=== PATIENT | female | born 1975 | race Caucasian/White ===

== ENCOUNTER → 2019-07-08 | Outpatient (CLI) | payer BC ==
--- NOTE | 2019-07-08 09:22 | US ---
EXAMINATION TYPE: US transvaginal DATE OF EXAM: 07/08/2019 COMPARISON: NONE CLINICAL HISTORY: 43-year-old female N92.0 Menorrhagia. Heavy periods. TECHNIQUE: Transvaginal (TV FINDINGS: EXAM MEASUREMENTS: Uterus: 8.1 x 3.8 x 4.2 cm Endometrial Stripe: .8 cm 1. Uterus: Anteverted wnl. Small cervical nabothian cysts. 2. Endometrium: wnl 3. Right Ovary: Obscured by overlying bowel gas 4. Left Ovary: Obscured by overlying bowel gas 5. Bilateral Adnexa: wnl 6. Posterior cul-de-sac: wnl IMPRESSION: Endometrial stripe measuring 8 mm. Small cervical nabothian cysts. Neither ovary could be visualized. No pelvic free fluid.
== END | disposition home or self-care (01) ==
LOC: RADUSWWP 08:43
PROVIDERS: ATTEND Family Medicine
DX: N88.8 Other specified noninflammatory disorders of cervix uteri (principal)
CPT/HCPCS: 76830

== ENCOUNTER 2021-04-18 12:59 | Emergency (ER) | payer BC ==
[2021-04-18 13:14] VITALS: RESP 18
[2021-04-18] MEDS ORDERED: SODIUM CHLORIDE 0.9% 1,000 ML IV STA (14:22)
[2021-04-18] MEDS ORDERED: PANTOPRAZOLE 40 MG/10 ML VIAL IVP STA (14:22)
--- NOTE | 2021-04-18 14:28 | ED ---
General Adult HPI - General Chief complaint: GI Bleed Stated complaint: rectal bleeding Time Seen by Provider: 04/18/21 14:15 Source: patient, RN notes reviewed, old records reviewed Mode of arrival: ambulatory Limitations: no limitations - History of Present Illness Initial comments: 45-year-old female presents to the emergency room ambulatory with complaints of rectal bleeding more than 10 times since Sunday. Patient states that she's had some abdominal pain and cramping and then bright red stools. She also felt dizzy and feverish. She started taking Ozempic for weight loss ,Sunday of last week was her first injection. She called her primary care doctor who suggested she come to the emergency room. She has had nausea, no vomiting. -: days(s) (2) Location: abdomen Severity scale (1-10): 0 Consistency: now resolved Associated Symptoms: fever/chills, nausea/vomiting, other (rectal bleeding) - Related Data Home Medications Medication Instructions Recorded Confirmed Ondansetron Odt [Zofran Odt] 4 mg PO Q8H PRN 04/18/21 04/18/21 Semaglutide [Ozempic] 0.25 mg SQ TU 04/18/21 04/18/21 Venlafaxine HCl [Effexor XR] 75 mg PO DAILY 04/18/21 04/18/21 Previous Rx's Medication Instructions Recorded Amoxicillin/Potassium Clav 1 tab PO Q12HR 10 Days #20 tab 04/18/21 [Augmentin 875-125 Tablet] Allergies Allergy/AdvReac Type Severity Reaction Status Date / Time No Known Allergies Allergy Verified 04/18/21 16:04 Review of Systems ROS Statement: Those systems with pertinent positive or pertinent negative responses have been documented in the HPI. ROS Other: All systems not noted in ROS Statement are negative. Past Medical History Past Medical History: No Reported History History of Any Multi-Drug Resistant Organisms: None Reported Past Surgical History: No Surgical Hx Reported Past Psychological History: No Psychological Hx Reported Smoking Status: Never smoker Past Alcohol Use History: None Reported Past Drug Use History: None Reported General Exam Limitations: no limitations General appearance: alert, in no apparent distress Head exam: Present: atraumatic, normocephalic, normal inspection Eye exam: Present: normal appearance, EOMI. Absent: scleral icterus, conjunctival injection, periorbital swelling, periorbital tenderness ENT exam: Present: normal exam, normal oropharynx, mucous membranes moist Respiratory exam: Present: normal lung sounds bilaterally. Absent: respiratory distress, wheezes, rales, chest wall tenderness, accessory muscle use, decreased breath sounds GI/Abdominal exam: Present: soft, normal bowel sounds. Absent: distended, tenderness, guarding, rebound, rigid Extremities exam: Present: normal inspection, full ROM, normal capillary refill. Absent: tenderness, pedal edema, joint swelling, calf tenderness Back exam: Present: normal inspection, full ROM. Absent: tenderness, CVA tenderness (R), CVA tenderness (L), rash noted Neurological exam: Present: alert, oriented X3, normal gait Psychiatric exam: Present: normal affect, normal mood Skin exam: Present: warm, dry, intact, normal color. Absent: cyanosis, diaphoretic, petechiae, pallor Course Vital Signs 04/18/21 04/18/21 04/18/21 13:07 15:28 17:13 Temperature 97.7 F Pulse Rate 96 90 97 Respiratory 18 18 18 Rate Blood Pressure 132/86 129/84 124/85 O2 Sat by Pulse 96 96 98 Oximetry 04/18/21 17:16 Temperature 97.2 F L Pulse Rate Respiratory Rate Blood Pressure O2 Sat by Pulse Oximetry Medical Decision Making - Medical Decision Making 45-year-old female presents to the emergency room ambulatory with complaints of rectal bleeding more than 10 times since Sunday. Denies nausea, vomiting or fevers. Hemoglobin and hematocrit are stable. Occult blood is positive. Her abdomen is soft and nontender. CT the abdomen and pelvis with contrast shows wall thickening of the descending colon compatible with a nonspecific colitis. Patient was given antibiotics and a referral to gastroenterology. I did explain to the patient that she may need a colonoscopy. Follow-up is important. She was directed to return to the emergency room with any new or worsening symptoms. She is agreeable to this plan of care. Vital signs are stable. Case discussed with Dr. Gracia. - Lab Data Result diagrams: 04/18/21 14:52 04/18/21 14:52 Lab Results 04/18/21 04/18/21 04/18/21 Range/Units 14:52 14:52 14:52 WBC 11.2 H (3.8-10.6) k/uL RBC 4.83 (3.80-5.40) m/uL Hgb 14.3 (11.4-16.0) gm/dL Hct 42.9 (34.0-46.0) % MCV 88.8 (80.0-100.0) fL MCH 29.6 (25.0-35.0) pg MCHC 33.3 (31.0-37.0) g/dL RDW 12.7 (11.5-15.5) % Plt Count 380 (150-450) k/uL MPV 6.7 Neutrophils % 70 % Lymphocytes % 22 % Monocytes % 5 % Eosinophils % 1 % Basophils % 0 % Neutrophils # 7.9 H (1.3-7.7) k/uL Lymphocytes # 2.5 (1.0-4.8) k/uL Monocytes # 0.5 (0-1.0) k/uL Eosinophils # 0.1 (0-0.7) k/uL Basophils # 0.0 (0-0.2) k/uL PT 10.0 (9.0-12.0) sec INR 0.9 (<1.2) APTT 22.2 (22.0-30.0) sec Sodium 138 (137-145) mmol/L Potassium 3.8 (3.5-5.1) mmol/L Chloride 104 (98-107) mmol/L Carbon Dioxide 29 (22-30) mmol/L Anion Gap 5 mmol/L BUN 15 (7-17) mg/dL Creatinine 0.69 (0.52-1.04) mg/dL Est GFR (CKD-EPI)AfAm >90 (>60 ml/min/1.73 sqM) Est GFR (CKD-EPI)NonAf >90 (>60 ml/min/1.73 sqM) Glucose 91 (74-99) mg/dL Plasma Lactic Acid Camilo (0.7-2.0) mmol/L Calcium 9.7 (8.4-10.2) mg/dL Magnesium 2.0 (1.6-2.3) mg/dL Total Bilirubin 0.6 (0.2-1.3) mg/dL AST 29 (14-36) U/L ALT 29 (4-34) U/L Alkaline Phosphatase 70 (38-126) U/L Total Protein 6.9 (6.3-8.2) g/dL Albumin 4.0 (3.5-5.0) g/dL Stool Occult Blood (Negative) 04/18/21 04/18/21 Range/Units 14:52 17:01 WBC (3.8-10.6) k/uL RBC (3.80-5.40) m/uL Hgb (11.4-16.0) gm/dL Hct (34.0-46.0) % MCV (80.0-100.0) fL MCH (25.0-35.0) pg MCHC (31.0-37.0) g/dL RDW (11.5-15.5) % Plt Count (150-450) k/uL MPV Neutrophils % % Lymphocytes % % Monocytes % % Eosinophils % % Basophils % % Neutrophils # (1.3-7.7) k/uL Lymphocytes # (1.0-4.8) k/uL Monocytes # (0-1.0) k/uL Eosinophils # (0-0.7) k/uL Basophils # (0-0.2) k/uL PT (9.0-12.0) sec INR (<1.2) APTT (22.0-30.0) sec Sodium (137-145) mmol/L Potassium (3.5-5.1) mmol/L Chloride (98-107) mmol/L Carbon Dioxide (22-30) mmol/L Anion Gap mmol/L BUN (7-17) mg/dL Creatinine (0.52-1.04) mg/dL Est GFR (CKD-EPI)AfAm (>60 ml/min/1.73 sqM) Est GFR (CKD-EPI)NonAf (>60 ml/min/1.73 sqM) Glucose (74-99) mg/dL Plasma Lactic Acid Camilo 1.0 (0.7-2.0) mmol/L Calcium (8.4-10.2) mg/dL Magnesium (1.6-2.3) mg/dL Total Bilirubin (0.2-1.3) mg/dL AST (14-36) U/L ALT (4-34) U/L Alkaline Phosphatase (38-126) U/L Total Protein (6.3-8.2) g/dL Albumin (3.5-5.0) g/dL Stool Occult Blood Positive H (Negative) Disposition Clinical Impression: Colitis Disposition: HOME SELF-CARE Condition: Good Instructions (If sedation given, give patient instructions): Gastrointestinal Bleeding (ED), Colitis (ED) Additional Instructions: Take antibiotics as prescribed and follow-up your primary care doctor this week. Follow up with gastroenterology as referred for continuation of care and possible colonoscopy. Return to the emergency room with any new or concerning symptoms including increased pain, increased bleeding or fevers. Prescriptions: Amoxicillin/Potassium Clav [Augmentin 875-125 Tablet] 1 tab PO Q12HR 10 Days #20 tab Is patient prescribed a controlled substance at d/c from ED?: No Referrals: Oscar Lucio MD [Primary Care Provider] - 1-2 days Mimi Reyes MD [STAFF PHYSICIAN] - 1-2 days Time of Disposition: 16:42
[2021-04-18 15:05] LABS: Basophils % (A) 0 %; Eosinophils # (A) 0.1 k/uL (0-0.7); Eosinophils % (A) 1 %; HCT 42.9 % (34.0-46.0); HGB 14.3 gm/dL (11.4-16.0); Lymphocytes # (A) 2.5 k/uL (1.0-4.8); Lymphocytes % (A) 22 %; MCH 29.6 pg (25.0-35.0); MCHC 33.3 g/dL (31.0-37.0); MCV 88.8 fL (80.0-100.0); Mean Platelet Volume 6.7; Monocytes # (A) 0.5 k/uL (0-1.0); Monocytes % (A) 5 %; Neutrophils # (A) 7.9 k/uL (1.3-7.7); Neutrophils % (A) 70 %; Platelet Count 380 k/uL (150-450); RBC 4.83 m/uL (3.80-5.40); RDW 12.7 % (11.5-15.5); WBC 11.2 k/uL (3.8-10.6)
[2021-04-18 15:17] LABS: ALT 29 U/L (4-34); AST 29 U/L (14-36); African American GFR (CKD) >90 (>60 ml/min/1.73 sqM); Alkaline Phosphatase 70 U/L (38-126); Anion Gap 5 mmol/L; Blood Urea Nitrogen 15 mg/dL (7-17); Calcium 9.7 mg/dL (8.4-10.2); Carbon Dioxide 29 mmol/L (22-30); Chloride 104 mmol/L (98-107); Glucose 91 mg/dL (74-99); Non-African American GFR(CKD) >90 (>60 ml/min/1.73 sqM); Potassium 3.8 mmol/L (3.5-5.1); Sodium 138 mmol/L (137-145); Total Bilirubin 0.6 mg/dL (0.2-1.3); Total Protein 6.9 g/dL (6.3-8.2)
[2021-04-18 15:19] LABS: INR 0.9 (<1.2); Partial Thromboplastin Time 22.2 sec (22.0-30.0)
--- NOTE | 2021-04-18 15:36 | CT ---
EXAMINATION TYPE: CT abdomen pelvis w con DATE OF EXAM: 04/18/2021 COMPARISON: None HISTORY: Abdominal pain and bright red rectal bleeding x [address] DLP: 1468.3 mGycm CONTRAST: CT scan of the abdomen and pelvis is performed without Oral Contrast and with IV Contrast, patient in jected with 100 mL of Isovue 300. FINDINGS: LUNG BASES-: No visible nodule. No infiltrate. LIVER/GB: No calcified gallstones. No space occupying hepatic lesion. Biliary tree is of normal ca liber. PANCREAS: No inflammation. No distinct mass. SPLEEN: No splenic enlargement. No lesion seen. ADRENALS: No nodule. No thickening. KIDNEYS/BLADDER: No hydronephrosis. No nephrolithiasis. No distinct renal mass. Urinary bladder g rossly unremarkable. BOWEL: Normal appendix. There is wall thickening involving the descending colon compatible with nonsp ecific colitis. Correlate for various infectious and inflammatory processes. The remainder of the col on appears to be spared. GENITAL ORGANS: No gross abnormality. LYMPH NODES: No greater than 1cm abdominal or pelvic lymph nodes are appreciated. AORTA: No significant abnormality. OSSEOUS STRUCTURES: No significant abnormality is seen. OTHER: No significant additional abnormality is seen. IMPRESSION: 1. There is wall thickening involving the descending colon compatible with nonspecific colitis. Corre late for various infectious and inflammatory processes.
[2021-04-18] MEDS ORDERED: AMOXIC-POT CLAV 875-125MG 1 EACH TAB PO STA (16:42)
[2021-04-18 17:14] VITALS: BP 124/85; PULSE 97
[2021-04-18 17:16] VITALS: TEMP 97.2
== END 2021-04-18 17:17 | disposition home or self-care (01) ==
LOC: EC 12:59
DX: K52.9 Noninfective gastroenteritis and colitis, unspecified (principal)
CPT/HCPCS: 36415; 80053; 83605; 83735; 85025; 85610; 85730; 82272; 74177; 99284; 96374; C9113; Q9967

== ENCOUNTER 2021-05-13 09:15 | Day surgery (SDC) | payer BC ==
[2021-05-13] MEDS ORDERED: LACTATED RINGERS 1,000 ML IV SCH (09:23)
[2021-05-13 09:35] VITALS: TEMP 96.9
[2021-05-13] MEDS ORDERED: LIDOCAINE 1% (10MG/ML) FOR IV START INTRADERMA ONE (09:36)
[2021-05-13] MEDS ORDERED: PROPOFOL 10 MG/ML 20 ML VIAL IV ONE (09:45)
--- NOTE | 2021-05-13 10:06 | P.PCN ---
Date of Procedure: 05/13/21 Procedure(s) Performed: BRIEF HISTORY: Patient is a 45-year-old pleasant female scheduled for an elective colonoscopy as a part of evaluation of recent episode of acute lower abdominal pain followed by multiple episodes of rectal bleeding for which she was in the emergency room approximately [address] of abdomen revealed thickening of the descending colon. She was treated with antibiotics and was discharged home. PROCEDURE PERFORMED: Colonoscopy with snare polypectomy. PREOPERATIVE DIAGNOSIS: Recent episode of acute abdominal pain and rectal bleeding. IV sedation per Anesthesia. PROCEDURE: After informed consent was obtained, the patient, was brought into the endoscopy unit. IV sedation was administered by Anesthesia under continuous monitoring. Digital rectal examination was normal. Initially the Olympus CF-160 flexible video colonoscope was then inserted in the rectum, gradually advanced into the cecum without any difficulty. Careful examination was performed as the scope was gradually being withdrawn. Ileocecal valve and the appendiceal orifice were visualized and appeared normal. Prep was excellent. In the ileum was intubated and 20 cm visualized and appeared normal Mucosa of the cecum normal. Ascending colon there was a 7 mm flat polyp removed by snare polypectomy. Rest of the, ascending colon, transverse colon, descending colon, sigmoid colon, and rectum appeared normal. In the distal sigmoid colon at 25 cm from anal was there was a 1 cm polyp removed by snare polypectomy Retroflexion was performed in the rectum and no lesions were seen. The patient tolerated the procedure well. IMPRESSION: 7 mm flat ascending colon polyp s/p snare polypectomy 1 cm;sigmoid polyp status post polypectomy No evidence of colitis or colorectal neoplasia RECOMMENDATIONS: Findings of this examination were discussed with the patient as well as her family. She was advised to follow with the biopsy results. If the biopsy is adenoma she can have a repeat colonoscopy in 3 years..
[2021-05-13 10:19] VITALS: BP 126/82; PULSE 71; RESP 16
== END 2021-05-13 10:45 | disposition home or self-care (01) ==
LOC: ORWHC2ENDO 09:15
PROVIDERS: ATTEND Internal Medicine Gastroenterology
DX: D12.2 Benign neoplasm of ascending colon (principal); D12.5 Benign neoplasm of sigmoid colon; E11.9 Type 2 diabetes mellitus without complications; F32.A Depression, unspecified; K21.9 Gastro-esophageal reflux disease without esophagitis
CPT/HCPCS: 45385; 81025; 88305; J2704

== ENCOUNTER → 2022-08-21 | Outpatient (CLI) | payer BC ==
--- NOTE | 2022-08-21 09:02 | US ---
EXAMINATION TYPE: US pelvic complete DATE OF EXAM: 08/21/2022 COMPARISON: CLINICAL INDICATION: Female, 46 years old with history of N92.0 EXCESSIVE AND FREQ MENSTRUATION; Arabella ent states having very heavy bleeding in June, has not had a cycle since. TECHNIQUE: Transabdominal (TA). Transabdominal sonographic images of the pelvis were acquired. Date of LMP: 06/17/2022, EXAM MEASUREMENTS: Uterus: 9.7 x 6.0 x 4.9 cm Endometrial Stripe: 1.5 cm Right Ovary: 2.6 x 1.8 x 1.2 cm Left Ovary: 2.6 x 2.1 x 1.7 cm 1. Uterus: Anteverted wnl 2. Endometrium: Upper limits of normal in size 3. Right Ovary: wnl 4. Left Ovary: wnl 5. Bilateral Adnexa: wnl 6. Posterior cul-de-sac: no free fluid IMPRESSION: No significant abnormality appreciated.
== END | disposition home or self-care (01) ==
LOC: RADUSWWP 07:39
PROVIDERS: ATTEND Family Medicine
DX: N92.0 Excessive and frequent menstruation with regular cycle (principal)
CPT/HCPCS: 76856

== ENCOUNTER → 2022-12-22 | Outpatient (CLI) | payer BC ==
--- NOTE | 2022-12-27 08:09 | MM ---
Reason for Exam: Screening (asymptomatic). Patient History: Menarche at age 8. First Full-Term at age 22. Last menstrual period: Risk Values: Maria Alejandra 5 year model risk: 0.9%. NCI Lifetime model risk: 8.9%. Prior Study Comparison: No prior studies available for comparison. Tissue Density: The breast tissue is heterogeneously dense. This may lower the sensitivity of mammography. Findings: Analyzed By CAD. There is no suspicious group of microcalcifications or new suspicious mass in either breast. Asymmetric density upper outer left breast 8 cm from the nipple. Overall Assessment: Incomplete: need additional imaging evaluation, BI-RAD 0 Management: Diagnostic Mammogram of the left breast. . Patient should continue monthly self-breast exams. A clinical breast exam by your physician is recommended on an annual basis. This exam should not preclude additional follow-up of suspicious palpable abnormalities. Note on Maria Alejandra scores and lifetime risk: 1. A Maria Alejandra score greater than 3% is considered moderate risk. If this is the case, consider specialist referral to assess eligibility for a risk reducing agent. 2. If overall lifetime risk for the development of breast cancer is 20% or higher, the patient may qualify for future screening with alternating mammogram and breast MRI. Electronically signed and approved by: Jose Arguello M.D. Radiologis
== END | disposition home or self-care (01) ==
LOC: RADMAMWWP 07:06
PROVIDERS: ATTEND Family Medicine
DX: Z12.31 Encounter for screening mammogram for malignant neoplasm of breast (principal)
CPT/HCPCS: 77063; 77067

== ENCOUNTER → 2023-01-09 | Outpatient (CLI) | payer BC ==
--- NOTE | 2023-01-09 15:28 | MM ---
Reason for Exam: Additional evaluation requested from abnormal screening. Last screening mammogram was performed less than 1 month ago. Patient History: Menarche at age 8. First Full-Term at age 22. Risk Values: Maria Alejandra 5 year model risk: 0.9%. NCI Lifetime model risk: 8.9%. Prior Study Comparison: 12/22/2022 Bilateral MG 3D screening mammo w/cad, [facility]. Tissue Density: Left: There are scattered fibroglandular densities. Findings: Analyzed By CAD. Pattern appears stable. Under compression a persistent suspicious distortion is identified. Mediolateral view appears normal. No suspicious groups of microcalcifications, spiculated or lobular masses, architectural distortion or other secondary signs of malignancy are mammographically apparent. Overall Assessment: Probably benign, BI-RAD 3 Management: Diagnostic Mammogram of the left breast in 6 months. A negative mammogram report should not preclude additional follow up of suspicious palpable abnormalities. Patient should continue monthly self breast exam. A clinical breast exam by your physician is recommended on an annual basis and results should be correlated with mammographic findings. Electronically signed and approved by: Erich Tinsley D.O. Radiologis
== END | disposition home or self-care (01) ==
LOC: RADMAMWWP 15:00
PROVIDERS: ATTEND Family Medicine
DX: R92.322 Mammographic fibroglandular density, left breast (principal)
CPT/HCPCS: 77061; 77065